=== PATIENT | male | born 1985 ===

== ENCOUNTER 2019-10-28 21:17 | Emergency (ER) | payer OTHER ==
[~2019-10-28] VITALS: Ht 175.3 cm; Wt 74.8 kg
[~2019-10-28 21:17] MED LIST: AMOXICILLIN200 MG; CEFADROXIL500 MG PO; DOLOGESIC CAPSU1 CAP PO
== END 2019-10-28 23:19 | disposition home or self-care (01) ==
LOC: ER 21:17
DX: R53.81 Other malaise (principal); Z03.818 Encounter for observation for suspected exposure to other biological agents ruled out